=== PATIENT | female | born 1980 | race Caucasian/White ===

== ENCOUNTER → 2016-10-23 | Outpatient (CLI) | payer BC ==
--- NOTE | 2016-10-23 08:20 | US ---
EXAMINATION TYPE: US gallbladder DATE OF EXAM: 10/23/2016 7:54 AM COMPARISON: on PACS complete abdominal ultrasound August 30, 2009 CLINICAL HISTORY: RUQ Pain R10.11. RUQ pain, constipation, no appetite EXAM MEASUREMENTS: Liver Length: 14.9 cm Gallbladder Wall: 0.1 cm CHD: 0.5 cm Right Kidney: 10.4 x 5.5 x 4.6 cm TECHNOLOGIST IMPRESSION: Pancreas: echogenic, tail not well seen due to overlying bowel gas Liver: wnl Gallbladder: Echogenic lesion seen at anterior wall = 0.4 x 0.4 cm Evidence for sonographic Crain's sign: neg CHD: wnl as visualized Right Kidney: No hydronephrosis or masses seen Portions of pancreas are secured by overlying bowel gas. Heterogeneous liver is redemonstrated withou t intrahepatic ductal dilatation. Suspect fatty infiltration. The gallbladder wall there is 4 mm nons hadowing nonmobile hyperechoic focus could reflect small polyp. No shadowing mobile gallstones are se en. IMPRESSION: No shadowing mobile gallstones or ultrasound evidence for acute cholecystitis. Probable m ild diffuse fatty infiltration of liver is redemonstrated.
== END | disposition home or self-care (01) ==
LOC: RADUSWWP 07:26
PROVIDERS: ATTEND Family Medicine
DX: R10.11 Right upper quadrant pain (principal)
CPT/HCPCS: 76705

== ENCOUNTER 2017-08-05 10:41 | Emergency (ER) | payer BC ==
[2017-08-05] MEDS ORDERED: DIAZEPAM 5 MG/ML 2 ML INJ IM ONE (11:15)
[2017-08-05] MEDS ORDERED: KETOROLAC 30 MG/ML 1 ML VIAL IM STA (11:15)
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
[2017-08-05] MEDS ORDERED: HYDROmorphone 1 MG/ML 1 ML SYRINGE IM STA (13:09)
--- NOTE | 2017-08-05 13:14 | XR ---
EXAMINATION TYPE: XR shoulder complete LT DATE OF EXAM: 08/05/2017 COMPARISON: NONE HISTORY: Pain TECHNIQUE: 3 views FINDINGS: I see no fracture nor dislocation. Joint spaces are normal. There are no pathologic calcifi cations. IMPRESSION: Negative left shoulder exam.
--- NOTE | 2017-08-05 13:14 | XR ---
EXAMINATION TYPE: XR cervical spine comp DATE OF EXAM: 08/05/2017 COMPARISON: NONE HISTORY: Pain TECHNIQUE: 5 views FINDINGS: Vertebra have fairly normal alignment. Posterior elements are intact. Disc spaces are well- maintained. Atlantoaxial facet joint is normal. Neural foramina are widely patent. IMPRESSION: Negative cervical spine exam.
[2017-08-05 13:25] VITALS: BP 119/67; PULSE 85; RESP 16
[2017-08-05 14:15] VITALS: TEMP 97.8
== END 2017-08-05 14:04 | disposition home or self-care (01) ==
LOC: EC 10:41
DX: M54.2 Cervicalgia (principal); M25.512 Pain in left shoulder; M54.9 Dorsalgia, unspecified; I10 Essential (primary) hypertension; F32.9 Major depressive disorder, single episode, unspecified; F17.200 Nicotine dependence, unspecified, uncomplicated; Z79.899 Other long term (current) drug therapy; Z88.5 Allergy status to narcotic agent
CPT/HCPCS: 93005; 72050; 73030; 99283; 96372 ×3; J3360; J1885; J1170

== ENCOUNTER 2017-08-14 11:57 | Emergency (ER) | payer BC ==
[2017-08-14] MEDS ORDERED: HYDROmorphone 1 MG/ML 1 ML SYRINGE IVP STA ×2 (12:17→14:54)
[2017-08-14] MEDS ORDERED: ONDANSETRON 4 MG/2 ML VIAL IVP STA (12:17)
[2017-08-14] MEDS ORDERED: KETOROLAC 60 MG/2 ML VIAL IVP STA (12:17)
[2017-08-14] MEDS ORDERED: DIAZEPAM 5 MG/ML 2 ML INJ IVP STA (12:17)
--- NOTE | 2017-08-14 12:21 | ED ---
General Adult HPI - General Stated complaint: muscle spasms Time Seen by Provider: 08/14/17 12:00 Source: RN notes reviewed - History of Present Illness Initial comments: This is a 36-year-old female presents emergency Department complaining of left- sided neck pain which radiates down her left arm and upper back anytime she moves her neck or arm. Patient states this is been ongoing for 1 month she's been to the ER twice and has not followed up with a primary medical care doctor yet. Patient states she just woke up approximately one month ago and had the pain in the left side of the neck and it is getting worse. Patient states she did fall at work while carrying some things and at that time she did hurt her neck a little but did not follow-up because she didn't have a primary medical care doctor. Patient states she has some tingling to the tips of her fingers on the left as well. Patient denies any loss of sensation however. Patient denies any difficulty breathing chest pain or shortness of breath. Patient denies any central back pain. Patient denies any lower back pain. Patient denies any headache. Patient denies any other area of pain or discomfort - Related Data Previous Rx's Medication Instructions Recorded Diazepam [Valium] 5 mg PO Q6H #10 tab 08/14/17 Hydrocodone/Acetaminophen [[place] 1 each PO Q4HR PRN #20 tab 08/14/17 5-325] Ibuprofen [Motrin] 600 mg PO Q6HR PRN #20 tab 08/14/17 Allergies Allergy/AdvReac Type Severity Reaction Status Date / Time morphine Allergy Rash/Hives Verified 08/14/17 12:09 Review of Systems ROS Statement: Those systems with pertinent positive or pertinent negative responses have been documented in the HPI. ROS Other: All systems not noted in ROS Statement are negative. Past Medical History Past Medical History: Hypertension Additional Past Medical History / Comment(s): chronic back pain History of Any Multi-Drug Resistant Organisms: None Reported Past Surgical History: Appendectomy Past Psychological History: Depression Smoking Status: Current every day smoker Past Alcohol Use History: None Reported Past Drug Use History: None Reported General Exam - General Exam Comments Initial Comments: GENERAL: Patient is well-developed and well-nourished. Patient is nontoxic and well- hydrated and is in moderate distress. ENT: Neck is soft and supple. No significant lymphadenopathy is noted. Oropharynx is clear. Moist mucous membranes. Patient was unable to fully straighten out the neck because she is of the left side of her neck was painful any movement of the neck causes her pain in the neck and pain radiating down her left arm. EYES: The sclera were anicteric and conjunctiva were pink and moist. Extraocular movements were intact and pupils were equal round and reactive to light. Eyelids were unremarkable. PULMONARY: Unlabored respirations. Good breath sounds bilaterally. No audible rales rhonchi or wheezing was noted. CARDIOVASCULAR: There is a regular rate and rhythm without any murmurs gallops or rubs. ABDOMEN: Soft and nontender with normal bowel sounds. SKIN: Skin is clear with no lesions or rashes and otherwise unremarkable. NEUROLOGIC: Patient is alert and oriented x3. Cranial nerves II through XII are grossly intact. Motor and sensory are also intact. Normal speech, volume and content. Symmetrical smile. MUSCULOSKELETAL: Normal extremities with adequate strength and full range of motion. No lower extremity swelling or edema. No calf tenderness. LYMPHATICS: No significant lymphadenopathy is noted PSYCHIATRIC: Normal psychiatric evaluation. Course Vital Signs 08/14/17 12:00 Temperature 98.3 F Pulse Rate 104 H Respiratory 18 Rate Blood Pressure 142/91 O2 Sat by Pulse 98 Oximetry Medical Decision Making - Medical Decision Making I spoke with Dr. Paredes he will see the patient this week. I spoke with the patient she states she will be able to get in to see him. Disposition Clinical Impression: Cervical radiculopathy Disposition: HOME SELF-CARE Condition: Good Instructions: Cervical Radiculopathy (ED) Prescriptions: Diazepam [Valium] 5 mg PO Q6H #10 tab Hydrocodone/Acetaminophen [[place] 5-325] 1 each PO Q4HR PRN #20 tab PRN Reason: Pain Ibuprofen [Motrin] 600 mg PO Q6HR PRN #20 tab PRN Reason: For pain Referrals: Reji Paredes MD [Primary Care Provider] - 1-2 days Time of Disposition: 14:55
[2017-08-14 12:46] VITALS: BP 142/91; PULSE 104; RESP 18; TEMP 98.3
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
== END 2017-08-14 15:17 | disposition home or self-care (01) ==
LOC: EC 11:57
DX: M54.12 Radiculopathy, cervical region (principal); F17.200 Nicotine dependence, unspecified, uncomplicated; Z88.5 Allergy status to narcotic agent
CPT/HCPCS: 72125; 99284; 96374; 96375 ×3; 96376; J3360; J2405; J1885; J1170

== ENCOUNTER → 2017-09-20 | Outpatient (CLI) | payer BC ==
--- NOTE | 2017-09-20 08:51 | MR ---
EXAMINATION TYPE: MR cervical spine wo con DATE OF EXAM: 09/20/2017 COMPARISON: CT cervical spine 08/14/2017 HISTORY: Cervicalgia TECHNIQUE: Multiplanar, multisequence images of the cervical spine were acquired. C2-C3: No evidence for degenerative disc disease. No disc bulge/herniation or protrusion. No Canal stenosis. Foramina are patent bilaterally. C3-C4: No evidence for degenerative disc disease. No disc bulge/herniation or protrusion. No Canal stenosis. Foramina are patent bilaterally. C4-C5: There is a small central protrusion with moderate anterior thecal sac compression. Cord contac t is evident. Cord deformity is not clearly identified. No spinal canal stenosis present. Some uncove rtebral joint hypertrophy may be contributing to mild right foraminal narrowing C5-C6: There is a moderate size right paracentral disc herniation with moderate thecal sac compressio n. This has cord contact. Moderate cord deformity is present. Spinal canal stenosis is not present. M ild uncovertebral joint hypertrophy with mild to moderate foraminal narrowing is present bilaterally. C6-C7: There is a large left paracentral broad-based disc herniation with a large thecal sac compress ion. Cord contact and cord deformity is evident. Spinal canal stenosis posterior to the disc space is present. Moderate right and moderate to severe left foraminal stenosis is present. Some uncovertebra l joint hypertrophy is present. C7-T1: No evidence for degenerative disc disease. No disc bulge/herniation or protrusion. No Canal stenosis. Foramina are patent bilaterally. Vertebral body heights are preserved. Disc heights are preserved. There is subtle kyphosis present. A lignment is otherwise normal. IMPRESSION: 1. Large disc herniation C6-7 broad-based but predominantly right paracentral with spinal canal steno sis cord contact and cord deformity. 2. Moderate left paracentral disc herniation C5-6 with moderate thecal sac compression and cord defor mity. 3. Small central protrusion with mild anterior thecal sac compression and cord contact. Cord deformit y is not identified.
--- NOTE | 2017-09-20 11:08 | MR ---
EXAMINATION TYPE: MR shoulder LT wo con DATE OF EXAM: 09/20/2017 COMPARISON: Complete left shoulder x-ray August 05, 2017. HISTORY: Left shoulder pain per order. Significant pain with difficulty raising arm overhead for 1.5 months TECHNIQUE: Multiplanar, multisequence imaging of the left shoulder is performed without contrast. FINDINGS: Exam is suboptimal as there is motion artifact degradation. Rotator Cuff: Supraspinatus and infraspinatus tendons are both intact to humeral attachment. There is no suspicious signal. There is no suspicious tear. Subscapularis tendon is intact. Some increased si gnal and surrounding fluid is identified consistent with tiny tear of the middle one third fibers. Ro tator cuff muscle bulk is preserved . Acromioclavicular Joint: Acromioclavicular joint shows degenerative capsular hypertrophy with mild sp urring and joint space loss. Distal acromion morphology is unremarkable. Underlying fat plane is pres erved. Glenohumeral Joint: There is small glenohumeral joint effusion. No significant spurring is seen. Labrum: There is thickening of the middle glenohumeral ligament with absent adjacent labrum consisten t with Nawaf complex. Increased signal superior labrum consistent with tear is identified paracorona l image 12. Biceps Tendon: The long head of biceps is in normal location within bicipital groove. Some linear inc reased signal is seen in the intra-articular portion for reference parasagittal image 18 and paracoro nal image 10 consistent with intrasubstance tear. Bone marrow signal: No focal abnormal marrow signal is appreciated. Other: No additional significant abnormality is appreciated. IMPRESSION: 1. Nawaf complex noted as detailed above. 2. Tear through the superior labrum. 3. Tiny tear subscapularis tendon. 4. Intrasubstance tear intra-articular portion of long head of biceps tendon. 5. AC joint arthropathy.
== END | disposition home or self-care (01) ==
LOC: RADMRIMAIN 06:29
PROVIDERS: ATTEND Family Medicine
DX: S43.432A Superior glenoid labrum lesion of left shoulder, initial encounter (principal); S46.012A Strain of muscle(s) and tendon(s) of the rotator cuff of left shoulder, initial encounter; S46.212A Strain of muscle, fascia and tendon of other parts of biceps, left arm, initial encounter; M12.9 Arthropathy, unspecified; M48.02 Spinal stenosis, cervical region; M50.222 Other cervical disc displacement at C5-C6 level
CPT/HCPCS: 72141

== ENCOUNTER → 2017-10-16 | Outpatient (CLI) | payer BC ==
[2017-10-16 09:19] LABS: MCH 27.8 pg (25.0-35.0); MCV 81.7 fL (80.0-100.0); Mean Platelet Volume 7.5; Platelet Count 306 k/uL (150-450); RBC 5.01 m/uL (3.80-5.40); RDW 14.1 % (11.5-15.5); WBC 8.6 k/uL (3.8-10.6)
[2017-10-16 09:23] LABS: ALT 20 U/L (9-52); AST 13 U/L (14-36); Albumin 3.7 g/dL (3.5-5.0); Alkaline Phosphatase 69 U/L (38-126); Anion Gap 8 mmol/L; Blood Urea Nitrogen 14 mg/dL (7-17); Calcium 9.5 mg/dL (8.4-10.2); Carbon Dioxide 30 mmol/L (22-30); Chloride 103 mmol/L (98-107); Glucose 92 mg/dL (74-99); Potassium 4.7 mmol/L (3.5-5.1); Sodium 141 mmol/L (137-145); Total Bilirubin 0.2 mg/dL (0.2-1.3); Total Protein 6.7 g/dL (6.3-8.2)
[2017-10-16 09:25] LABS: Partial Thromboplastin Time 23.8 sec (22.0-30.0); Prothrombin Time 10.1 sec (9.0-12.0)
[2017-10-16 09:28] LABS: Appearance,Urine Clear (Clear); Bilirubin,Urine Negative (Negative); Blood,Urine Small (Negative); Color,Urine Yellow; Glucose,Urine (UA) Negative (Negative); Ketones,Urine Negative (Negative); Leukocyte Esterase,Urine Negative (Negative); Mucus,Urine Rare /hpf; Nitrite,Urine Negative (Negative); PH, Urine 5.5 (5.0-8.0); Protein,Urine Negative (Negative); RBC,Urine 1 /hpf (0-5); Specific Gravity,Urine 1.014 (1.001-1.035); Squamous Epithelial Cell,Urine 2 /hpf (0-4); Urobilinogen,Urine <2.0 mg/dL (<2.0); WBC,Urine 2 /hpf (0-5)
--- NOTE | 2017-10-16 12:54 | XR ---
EXAMINATION TYPE: XR chest 2V DATE OF EXAM: 10/16/2017 COMPARISON: 07/29/2017 HISTORY: Chest pain TECHNIQUE: Frontal and lateral views of the chest are obtained. FINDINGS: There is no focal air space opacity. No evidence for pneumothorax. No pleural effusion. The cardiac silhouette size is within normal limits. The osseous structures are grossly intact. IMPRESSION: 1. No acute cardiopulmonary process.
== END | disposition home or self-care (01) ==
LOC: LABWHC1 08:28
PROVIDERS: ATTEND Orthopaedic Surgery Orthopaedic Surgery of the Spine
DX: Z01.818 Encounter for other preprocedural examination (principal); M43.22 Fusion of spine, cervical region; M50.20 Other cervical disc displacement, unspecified cervical region
CPT/HCPCS: 36415; 71046; 80053; 81001; 85027; 85610; 85730; 93005

== ENCOUNTER 2018-09-24 19:44 | Emergency (ER) | payer BC, OTHER ==
[2018-09-24] MEDS ORDERED: SODIUM CHLORIDE 0.9% 500 ML 500 ML IV ONE (19:54)
--- NOTE | 2018-09-24 20:05 | ED ---
General Adult HPI - General Chief complaint: Seizure Stated complaint: Syncope Time Seen by Provider: 09/24/18 19:49 Source: patient, EMS, RN notes reviewed, old records reviewed Mode of arrival: EMS Limitations: altered mental status - History of Present Illness Initial comments: 37-year-old female presents with an episode of syncope versus seizure. History is somewhat limited, patient is mildly confused. She was at work, collapse, had generalized shaking. She has no history of seizure disorder. EMS report that the patient was agitated and confused at the time of the initial evaluation. She refuses vital signs, refused blood sugar. Patient was moving all extremities symmetrically. She did have head trauma and was placed in a c- collar. No physical complaints. No chest pain, no abdominal pain. No vomiting or diarrhea. - Related Data Home Medications Medication Instructions Recorded Confirmed Cyclobenzaprine [Flexeril] 10 mg PO TID PRN 09/24/18 09/24/18 DULoxetine HCL [Cymbalta] 60 mg PO HS 09/24/18 09/24/18 Gabapentin [Neurontin] 300 mg PO TID 09/24/18 09/24/18 oxyCODONE-APAP 5-325MG [Percocet 1 tab PO DAILY PRN 09/24/18 09/24/18 5-325 mg] Allergies Allergy/AdvReac Type Severity Reaction Status Date / Time morphine Allergy Rash/Hives Verified 09/24/18 20:07 Review of Systems ROS Statement: Those systems with pertinent positive or pertinent negative responses have been documented in the HPI. ROS Other: All systems not noted in ROS Statement are negative. Past Medical History Past Medical History: Hypertension Additional Past Medical History / Comment(s): chronic back pain, History of Any Multi-Drug Resistant Organisms: None Reported Past Surgical History: Appendectomy Past Psychological History: Depression Smoking Status: Current every day smoker Past Alcohol Use History: None Reported Past Drug Use History: None Reported General Exam Limitations: altered mental status General appearance: alert, in no apparent distress Head exam: Present: normocephalic, other (Superficial abrasion, left forehead, occipital hematoma, no active hemorrhage) Eye exam: Present: normal appearance, PERRL ENT exam: Present: normal exam Neck exam: Present: normal inspection. Absent: tenderness, meningismus Respiratory exam: Present: normal lung sounds bilaterally. Absent: respiratory distress, wheezes Cardiovascular Exam: Present: normal rhythm, tachycardia GI/Abdominal exam: Present: soft. Absent: distended, tenderness Extremities exam: Present: normal inspection, normal capillary refill. Absent: pedal edema Neurological exam: Present: alert, oriented X3, CN II-XII intact. Absent: motor sensory deficit Psychiatric exam: Present: normal affect, normal mood Skin exam: Present: warm, dry, intact. Absent: cyanosis, diaphoretic Course Vital Signs 09/24/18 09/24/18 19:46 22:11 Temperature 99.0 F Pulse Rate 114 H 91 Respiratory 19 16 Rate Blood Pressure 139/93 139/85 O2 Sat by Pulse 100 100 Oximetry EKG Findings - EKG Comments: EKG Findings:: EKG: Sinus tachycardia, rate of 105, FL interval 142, QRS duration 88, QTC 454, no ST segment changes Medical Decision Making - Medical Decision Making 37-year-old female presenting with syncope versus seizure. There was reported postictal period, concern for seizure. Patient is well-appearing with nonfocal neurologic exam. She did have head trauma, CT head is obtained, negative for intracranial hemorrhage or mass effect. Patient has normal CBC, normal electrolytes. Workup in emergency Department is negative. Vitals remained stable. I did discuss possibility of transfer to outside facility for evaluation by neurology for suspected new onset seizure. Patient prefers to be discharged and will follow up as an outpatient. She will not drive, she will refrain from any activity that could cause injury. She will do have a seizure. She will maintain oral hydration, she will follow-up with both her primary care physician regarding these symptoms as well as neurology. Return with worsening or changing symptoms. - Lab Data Result diagrams: 09/24/18 20:52 09/24/18 20:52 Lab Results 09/24/18 09/24/18 09/24/18 Range/Units 20:52 20:52 20:52 WBC 12.3 H (3.8-10.6) k/uL RBC 5.26 (3.80-5.40) m/uL Hgb 14.3 (11.4-16.0) gm/dL Hct 45.2 (34.0-46.0) % MCV 85.9 (80.0-100.0) fL MCH 27.2 (25.0-35.0) pg MCHC 31.7 (31.0-37.0) g/dL RDW 14.3 (11.5-15.5) % Plt Count 305 (150-450) k/uL Neutrophils % 79 % Lymphocytes % 14 % Monocytes % 4 % Eosinophils % 1 % Basophils % 0 % Neutrophils # 9.8 H (1.3-7.7) k/uL Lymphocytes # 1.8 (1.0-4.8) k/uL Monocytes # 0.5 (0-1.0) k/uL Eosinophils # 0.2 (0-0.7) k/uL Basophils # 0.1 (0-0.2) k/uL Sodium 140 (137-145) mmol/L Potassium 4.5 (3.5-5.1) mmol/L Chloride 106 (98-107) mmol/L Carbon Dioxide 27 (22-30) mmol/L Anion Gap 7 mmol/L BUN 15 (7-17) mg/dL Creatinine 0.78 (0.52-1.04) mg/dL Est GFR (CKD-EPI)AfAm >90 (>60 ml/min/1.73 sqM) Est GFR (CKD-EPI)NonAf >90 (>60 ml/min/1.73 sqM) Glucose 90 (74-99) mg/dL Plasma Lactic Acid Edward 1.0 (0.7-2.0) mmol/L Calcium 9.4 (8.4-10.2) mg/dL Total Bilirubin 0.3 (0.2-1.3) mg/dL AST 21 (14-36) U/L ALT 27 (9-52) U/L Alkaline Phosphatase 89 (38-126) U/L Troponin I (0.000-0.034) ng/mL Total Protein 7.4 (6.3-8.2) g/dL Albumin 4.0 (3.5-5.0) g/dL Urine Color Urine Appearance (Clear) Urine pH (5.0-8.0) Ur Specific [place] (1.001-1.035) Urine Protein (Negative) Urine Glucose (UA) (Negative) Urine Ketones (Negative) Urine Blood (Negative) Urine Nitrite (Negative) Urine Bilirubin (Negative) Urine Urobilinogen (<2.0) mg/dL Ur Leukocyte Esterase (Negative) Urine RBC (0-5) /hpf Urine WBC (0-5) /hpf Ur Squamous Epith Cells (0-4) /hpf Urine Bacteria (None) /hpf Hyaline Casts (0-2) /lpf Urine Mucus (None) /hpf Urine HCG, Qual (Not Detectd) Salicylates <1.0 mg/dL Urine Opiates Screen (NotDetected) Ur Oxycodone Screen (NotDetected) Urine Methadone Screen (NotDetected) Ur Propoxyphene Screen (NotDetected) Acetaminophen <10.0 ug/mL Ur Barbiturates Screen (NotDetected) U Tricyclic Antidepress (NotDetected) Ur Phencyclidine Scrn (NotDetected) Ur Amphetamines Screen (NotDetected) U Methamphetamines Scrn (NotDetected) U Benzodiazepines Scrn (NotDetected) Urine Cocaine Screen (NotDetected) U Marijuana (THC) Screen (NotDetected) Serum Alcohol <10 mg/dL 09/24/18 09/24/18 09/24/18 Range/Units 20:52 21:25 21:25 WBC (3.8-10.6) k/uL RBC (3.80-5.40) m/uL Hgb (11.4-16.0) gm/dL Hct (34.0-46.0) % MCV (80.0-100.0) fL MCH (25.0-35.0) pg MCHC (31.0-37.0) g/dL RDW (11.5-15.5) % Plt Count (150-450) k/uL Neutrophils % % Lymphocytes % % Monocytes % % Eosinophils % % Basophils % % Neutrophils # (1.3-7.7) k/uL Lymphocytes # (1.0-4.8) k/uL Monocytes # (0-1.0) k/uL Eosinophils # (0-0.7) k/uL Basophils # (0-0.2) k/uL Sodium (137-145) mmol/L Potassium (3.5-5.1) mmol/L Chloride (98-107) mmol/L Carbon Dioxide (22-30) mmol/L Anion Gap mmol/L BUN (7-17) mg/dL Creatinine (0.52-1.04) mg/dL Est GFR (CKD-EPI)AfAm (>60 ml/min/1.73 sqM) Est GFR (CKD-EPI)NonAf (>60 ml/min/1.73 sqM) Glucose (74-99) mg/dL Plasma Lactic Acid Edward (0.7-2.0) mmol/L Calcium (8.4-10.2) mg/dL Total Bilirubin (0.2-1.3) mg/dL AST (14-36) U/L ALT (9-52) U/L Alkaline Phosphatase (38-126) U/L Troponin I <0.012 (0.000-0.034) ng/mL Total Protein (6.3-8.2) g/dL Albumin (3.5-5.0) g/dL Urine Color Light Yellow Urine Appearance Clear (Clear) Urine pH 5.5 (5.0-8.0) Ur Specific [place] 1.006 (1.001-1.035) Urine Protein Negative (Negative) Urine Glucose (UA) Negative (Negative) Urine Ketones Negative (Negative) Urine Blood Trace H (Negative) Urine Nitrite Negative (Negative) Urine Bilirubin Negative (Negative) Urine Urobilinogen <2.0 (<2.0) mg/dL Ur Leukocyte Esterase Trace H (Negative) Urine RBC <1 (0-5) /hpf Urine WBC 9 H (0-5) /hpf Ur Squamous Epith Cells 2 (0-4) /hpf Urine Bacteria Rare H (None) /hpf Hyaline Casts 3 H (0-2) /lpf Urine Mucus Rare H (None) /hpf Urine HCG, Qual (Not Detectd) Salicylates mg/dL Urine Opiates Screen Not Detected (NotDetected) Ur Oxycodone Screen Not Detected (NotDetected) Urine Methadone Screen Not Detected (NotDetected) Ur Propoxyphene Screen Not Detected (NotDetected) Acetaminophen ug/mL Ur Barbiturates Screen Not Detected (NotDetected) U Tricyclic Antidepress Not Detected (NotDetected) Ur Phencyclidine Scrn Not Detected (NotDetected) Ur Amphetamines Screen Not Detected (NotDetected) U Methamphetamines Scrn Not Detected (NotDetected) U Benzodiazepines Scrn Not Detected (NotDetected) Urine Cocaine Screen Not Detected (NotDetected) U Marijuana (THC) Screen Detected H (NotDetected) Serum Alcohol mg/dL 09/24/18 Range/Units 21:25 WBC (3.8-10.6) k/uL RBC (3.80-5.40) m/uL Hgb (11.4-16.0) gm/dL Hct (34.0-46.0) % MCV (80.0-100.0) fL MCH (25.0-35.0) pg MCHC (31.0-37.0) g/dL RDW (11.5-15.5) % Plt Count (150-450) k/uL Neutrophils % % Lymphocytes % % Monocytes % % Eosinophils % % Basophils % % Neutrophils # (1.3-7.7) k/uL Lymphocytes # (1.0-4.8) k/uL Monocytes # (0-1.0) k/uL Eosinophils # (0-0.7) k/uL Basophils # (0-0.2) k/uL Sodium (137-145) mmol/L Potassium (3.5-5.1) mmol/L Chloride (98-107) mmol/L Carbon Dioxide (22-30) mmol/L Anion Gap mmol/L BUN (7-17) mg/dL Creatinine (0.52-1.04) mg/dL Est GFR (CKD-EPI)AfAm (>60 ml/min/1.73 sqM) Est GFR (CKD-EPI)NonAf (>60 ml/min/1.73 sqM) Glucose (74-99) mg/dL Plasma Lactic Acid Edward (0.7-2.0) mmol/L Calcium (8.4-10.2) mg/dL Total Bilirubin (0.2-1.3) mg/dL AST (14-36) U/L ALT (9-52) U/L Alkaline Phosphatase (38-126) U/L Troponin I (0.000-0.034) ng/mL Total Protein (6.3-8.2) g/dL Albumin (3.5-5.0) g/dL Urine Color Urine Appearance (Clear) Urine pH (5.0-8.0) Ur Specific [place] (1.001-1.035) Urine Protein (Negative) Urine Glucose (UA) (Negative) Urine Ketones (Negative) Urine Blood (Negative) Urine Nitrite (Negative) Urine Bilirubin (Negative) Urine Urobilinogen (<2.0) mg/dL Ur Leukocyte Esterase (Negative) Urine RBC (0-5) /hpf Urine WBC (0-5) /hpf Ur Squamous Epith Cells (0-4) /hpf Urine Bacteria (None) /hpf Hyaline Casts (0-2) /lpf Urine Mucus (None) /hpf Urine HCG, Qual Not Detected (Not Detectd) Salicylates mg/dL Urine Opiates Screen (NotDetected) Ur Oxycodone Screen (NotDetected) Urine Methadone Screen (NotDetected) Ur Propoxyphene Screen (NotDetected) Acetaminophen ug/mL Ur Barbiturates Screen (NotDetected) U Tricyclic Antidepress (NotDetected) Ur Phencyclidine Scrn (NotDetected) Ur Amphetamines Screen (NotDetected) U Methamphetamines Scrn (NotDetected) U Benzodiazepines Scrn (NotDetected) Urine Cocaine Screen (NotDetected) U Marijuana (THC) Screen (NotDetected) Serum Alcohol mg/dL Disposition Clinical Impression: New onset seizure, Syncope Disposition: HOME SELF-CARE Condition: Fair Instructions (If sedation given, give patient instructions): New-Onset Seizure in Adults (ED), Syncope (ED) Is patient prescribed a controlled substance at d/c from ED?: No Referrals: None,Stated [REFERRING] - 1-2 days Chema Aparicio DO [Primary Care Provider] - 1-2 days Memo Lincoln MD [STAFF PHYSICIAN] - 1-2 days Time of Disposition: 23:10
[2018-09-24] MEDS ORDERED: DIPH,PERTUS(ACELL)TETVAC-LF 0.5 ML VIAL IM ONE (20:45)
[2018-09-24] MEDS ORDERED: ACETAMINOPHEN TAB 500 MG TAB PO STA (20:45)
[2018-09-24 21:16] LABS: Basophils # (A) 0.1 k/uL (0-0.2); Basophils % (A) 0 %; Eosinophils # (A) 0.2 k/uL (0-0.7); Eosinophils % (A) 1 %; HCT 45.2 % (34.0-46.0); HGB 14.3 gm/dL (11.4-16.0); Lymphocytes # (A) 1.8 k/uL (1.0-4.8); Lymphocytes % (A) 14 %; MCH 27.2 pg (25.0-35.0); MCHC 31.7 g/dL (31.0-37.0); MCV 85.9 fL (80.0-100.0); Mean Platelet Volume 7.3; Monocytes # (A) 0.5 k/uL (0-1.0); Monocytes % (A) 4 %; Neutrophils # (A) 9.8 k/uL (1.3-7.7); Neutrophils % (A) 79 %; Platelet Count 305 k/uL (150-450); RBC 5.26 m/uL (3.80-5.40); RDW 14.3 % (11.5-15.5); WBC 12.3 k/uL (3.8-10.6)
[2018-09-24 21:30] LABS: ALT 27 U/L (9-52); AST 21 U/L (14-36); Acetaminophen <10.0 ug/mL; Alcohol <10 mg/dL; Alkaline Phosphatase 89 U/L (38-126); Anion Gap 7 mmol/L; Blood Urea Nitrogen 15 mg/dL (7-17); Calcium 9.4 mg/dL (8.4-10.2); Carbon Dioxide 27 mmol/L (22-30); Chloride 106 mmol/L (98-107); Glucose 90 mg/dL (74-99); Potassium 4.5 mmol/L (3.5-5.1); Salicylate <1.0 mg/dL; Sodium 140 mmol/L (137-145); Total Bilirubin 0.3 mg/dL (0.2-1.3); Total Protein 7.4 g/dL (6.3-8.2)
[2018-09-24 21:50] LABS: Appearance,Urine Clear (Clear); Bacteria,Urine Rare /hpf; Bilirubin,Urine Negative (Negative); Blood,Urine Trace (Negative); Color,Urine Light Yellow; Glucose,Urine (UA) Negative (Negative); Hyaline Casts,Urine 3 /lpf (0-2); Ketones,Urine Negative (Negative); Leukocyte Esterase,Urine Trace (Negative); Mucus,Urine Rare /hpf; Nitrite,Urine Negative (Negative); PH, Urine 5.5 (5.0-8.0); Protein,Urine Negative (Negative); RBC,Urine <1 /hpf (0-5); Specific Gravity,Urine 1.006 (1.001-1.035); Squamous Epithelial Cell,Urine 2 /hpf (0-4); Urobilinogen,Urine <2.0 mg/dL (<2.0); WBC,Urine 9 /hpf (0-5)
[2018-09-24 21:59] LABS: Amphetamine Screen,Urine Not Detected (NotDetected); Barbiturate Screen,Urine Not Detected (NotDetected); Benzodiazepines Screen,Urine Not Detected (NotDetected); Cocaine Screen,Urine Not Detected (NotDetected); Methadone Screen, Urine Not Detected (NotDetected); Opiate Screen,Urine Not Detected (NotDetected); Oxycodone Screen, Urine Not Detected (NotDetected); Phencyclidine Screen,Urine Not Detected (NotDetected); Tricyclic Antidepressant,Urine Not Detected (NotDetected); Urn Cannabinoid Scrn Detected (NotDetected)
[2018-09-24] MEDS ORDERED: HYDROmorphone 1 MG/ML 1 ML SYRINGE IVP STA (22:09)
--- NOTE | 2018-09-24 22:22 | CT ---
EXAM: CT Head Without Intravenous Contrast CLINICAL HISTORY: Pain TECHNIQUE: Axial computed tomography images of the head/brain without intravenous contrast. CTDI is 0.085, 0.085, 45.2, 20.2 mGy and DLP is 1596.2 mGy-cm. This CT exam was performed using one or more of the following dose reduction techniques: automated exposure control, adjustment of the mA and/or kV according to patient size, and/or use of iterative reconstruction technique. COMPARISON: No relevant prior studies available. FINDINGS: Brain: No acute infarct, hemorrhage, mass or edema. No significant white matter disease. Ventricles: Unremarkable. No ventriculomegaly. Bones/joints: Unremarkable. No acute fracture. Soft tissues: Unremarkable. Sinuses: Mild mucosal thickening in the paranasal sinuses. Mastoid air cells: Unremarkable as visualized. No mastoid effusion. IMPRESSION: No acute findings. EXAM: CT Cervical Spine Without Intravenous Contrast CLINICAL HISTORY: Pain TECHNIQUE: Axial computed tomography images of the cervical spine without intravenous contrast. CTDI is 0.085, 0.085, 45.2, 20.2 mGy and DLP is 1596.2 mGy-cm. This CT exam was performed using one or more of the following dose reduction techniques: automated exposure control, adjustment of the mA and/or kV according to patient size, and/or use of iterative reconstruction technique. COMPARISON: CT C-spine dated 08/14/2017 FINDINGS: Vertebrae: No acute fracture or traumatic malalignment. Straightening of the normal cervical lordosis, likely positional. Discs/spinal canal/neural foramina: Anterior fusion hardware noted at C6-7. No spinal canal stenosis. Soft tissues: Unremarkable. IMPRESSION: No acute findings.
[2018-09-24] MEDS ORDERED: KETOROLAC 30 MG/ML 1 ML VIAL IVP STA (22:52)
[2018-09-25 00:03] VITALS: BP 129/80; PULSE 88; RESP 18; TEMP 98
== END 2018-09-24 23:15 | disposition home or self-care (01) ==
LOC: EC 19:44
DX: R56.9 Unspecified convulsions (principal); R55 Syncope and collapse; S00.03XA Contusion of scalp, initial encounter; S00.81XA Abrasion of other part of head, initial encounter; R00.0 Tachycardia, unspecified; R41.82 Altered mental status, unspecified; F32.9 Major depressive disorder, single episode, unspecified; F17.200 Nicotine dependence, unspecified, uncomplicated; Z88.5 Allergy status to narcotic agent; Z79.899 Other long term (current) drug therapy; Z23 Encounter for immunization; W19.XXXA Unspecified fall, initial encounter; Y92.69 Other specified industrial and construction area as the place of occurrence of the external cause; Y99.0 Civilian activity done for income or pay
CPT/HCPCS: 99285 ×2; 96375 ×2; 96361 ×3; 90471; 96374; 36415; 93005; 80053; 83605; 84484; 85025; 81001; 81025; 80306; 83520 ×2; 72125; 70450; 90715; 80320; J1885; J1170

== ENCOUNTER 2022-04-24 11:07 | Emergency (ER) | payer BC, OTHER ==
[2022-04-24 11:38] VITALS: RESP 18; TEMP 98.1
[2022-04-24] MEDS ORDERED: KETOROLAC 15 MG/ML 1 ML VIAL IM STA (12:30)
[2022-04-24] MEDS ORDERED: ORPHENADRINE 30 MG/ML 2 ML VIAL IM STA (12:30)
--- NOTE | 2022-04-24 12:33 | ED ---
Back Pain HPI - General Chief Complaint: Back Pain/Injury Stated Complaint: head, back & leg pain Time Seen by Provider: 04/24/22 12:23 Source: patient, RN notes reviewed, old records reviewed Limitations: no limitations - History of Present Illness Initial Comments: This is a well-appearing 41-year-old female that presents to the emergency room ambulatory with complaints of upper back pain, mid back pain and low back pain that radiates down her right leg for several months. Patient states that she has been trying to get into her primary care doctor without success. She has also been trying to get an appointment with the pain management clinic also without success. She has seen Dr. Mitchell [facility] in [facility]. She is concerned for worsening low back pain. She states she just wants something for the pain. She denies any fevers, no nausea vomiting diarrhea, no incontinence of bowel or bladder. No fevers. MD Complaint: back pain -: month(s) Similar Symptoms Previously: Yes Radiation: right leg Severity scale (1-10): 10 Quality: aching, tingling Consistency: constant Improves With: walking - Related Data Home Medications Medication Instructions Recorded Confirmed Cyclobenzaprine [Flexeril] 10 mg PO TID PRN 09/24/18 09/24/18 DULoxetine HCL [Cymbalta] 60 mg PO HS 09/24/18 09/24/18 Gabapentin [Neurontin] 300 mg PO TID 09/24/18 09/24/18 oxyCODONE-APAP 5-325MG [Percocet 1 tab PO DAILY PRN 09/24/18 09/24/18 5-325 mg] Previous Rx's Medication Instructions Recorded Ibuprofen [Motrin] 600 mg PO Q8HR PRN #30 tab 04/24/22 Lidocaine 5% Patch [Lidoderm] 1 patch TOPICAL DAILY 20 Days #20 04/24/22 patch Allergies Allergy/AdvReac Type Severity Reaction Status Date / Time morphine Allergy Rash/Hives Verified 04/24/22 11:38 Review of Systems ROS Statement: Those systems with pertinent positive or pertinent negative responses have been documented in the HPI. ROS Other: All systems not noted in ROS Statement are negative. Past Medical History Past Medical History: Hypertension Additional Past Medical History / Comment(s): chronic back pain, History of Any Multi-Drug Resistant Organisms: None Reported Past Surgical History: Appendectomy Past Psychological History: Depression Smoking Status: Light tobacco smoker Past Alcohol Use History: None Reported Past Drug Use History: None Reported General Exam Limitations: no limitations General appearance: alert, in no apparent distress Head exam: Present: atraumatic, normocephalic Eye exam: Absent: scleral icterus, conjunctival injection, periorbital swelling Neck exam: Present: full ROM. Absent: tenderness, meningismus Respiratory exam: Absent: respiratory distress, accessory muscle use Cardiovascular Exam: Present: regular rate Extremities exam: Present: normal capillary refill. Absent: tenderness, pedal edema Back exam: Present: normal inspection, paraspinal tenderness (LS-spine). Absent: tenderness, CVA tenderness (R), CVA tenderness (L), muscle spasm, rash noted Expanded Back exam: Absent: saddle anesthesia Neurological exam: Present: alert, oriented X3, normal gait (Ambulating in the room pacing) Psychiatric exam: Present: normal affect, normal mood Skin exam: Present: warm, dry, normal color. Absent: cyanosis, diaphoretic, petechiae, pallor Course Vital Signs 04/24/22 04/24/22 11:31 13:40 Temperature 98.1 F Pulse Rate 83 72 Respiratory 18 18 Rate Blood Pressure 156/103 140/94 O2 Sat by Pulse 99 99 Oximetry Medical Decision Making - Medical Decision Making X-ray shows moderate generative disc disease at L5 and L6 and mild L6 S1. Facet arthropathy mid to lower spine. No vertebral compression clots or malalignment. Patient is ambulatory in the room with a steady gait. She has no sciatic notch tenderness. She denies any trauma. She has no focal neurological deficits. No fevers, no recent steroids or IV drug use. No history of cancer. No signs are stable. Patient states that this pain is chronic for her. She is trying to get into the [facility] and pain management. She was given Toradol and Norflex in the emergency room. She was encouraged to use Lidoderm patches and Motrin for pain and follow-up with her primary care doctors. Case discussed with Dr. Forrester Disposition Clinical Impression: Chronic back pain Disposition: HOME SELF-CARE Condition: Good Instructions (If sedation given, give patient instructions): Chronic Back Pain (DC), Lower Back Exercises (ED) Additional Instructions: Continue Tylenol and/or Motrin as needed for pain. You can use Lidoderm patches as prescribed. Follow-up with your primary care doctor and [facility] along with pain management this week. Prescriptions: Lidocaine 5% Patch [Lidoderm] 1 patch TOPICAL DAILY 20 Days #20 patch Ibuprofen [Motrin] 600 mg PO Q8HR PRN #30 tab PRN Reason: Pain Is patient prescribed a controlled substance at d/c from ED?: No Referrals: Teddy Martinez MD [Primary Care Provider] - 1-2 days Time of Disposition: 13:28
--- NOTE | 2022-04-24 13:08 | XR ---
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 Facet arthropathy lower lumbar spine. Moderate degenerative disc disease at L5-L6 and mild at L6/S1. Vertebral body heights are preserved and alignm ent is maintained. Impression: 1. 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 Moderate degenerative disc disease above at L5-L6 and mild at L6-S1. 2. Facet arthropathy mid to lower lumbar spine. 3. No vertebral compression collapse or malalignment.
[2022-04-24 13:55] VITALS: BP 140/94; PULSE 72
== END 2022-04-24 13:45 | disposition home or self-care (01) ==
LOC: EC 11:07
DX: M54.50 Low back pain, unspecified (principal); I10 Essential (primary) hypertension; F32.A Depression, unspecified; F17.210 Nicotine dependence, cigarettes, uncomplicated; Z88.8 Allergy status to other drugs, medicaments and biological substances
CPT/HCPCS: 99283; 96372 ×2; 72100; J2360; J1885; 96374; 96375